=== PATIENT | male | born 1960 | race Two or more races ===

== ENCOUNTER 2019-10-04 13:50 | Emergency (ER) | payer OTHER ==
[~2019-10-04] VITALS: Ht 185.4 cm; Wt 84.1 kg
[~2019-10-04 13:50] MED LIST: AMLO5TAB9 PO
[2019-10-04 18:53] VITALS: BP 154/81
== END 2019-10-04 19:10 | disposition home or self-care (01) ==
LOC: EMS 13:51
DX: S02.5XXA Fracture of tooth (traumatic), initial encounter for closed fracture (principal); K02.9 Dental caries, unspecified; I10 Essential (primary) hypertension; X58.XXXA Exposure to other specified factors, initial encounter; Y93.89 Activity, other specified; Y92.89 Other specified places as the place of occurrence of the external cause; Y99.8 Other external cause status

== ENCOUNTER 2021-08-04 11:59 | Emergency (ER) | payer MEDICAID, OTHER ==
[~2021-08-04] VITALS: Ht 182.9 cm; Wt 84.1 kg
[~2021-08-04 11:59] MED LIST changes: +AMLO-257 PO; -AMLO5TAB9 PO
[2021-08-04 12:04] VITALS: BP 136/72
== END 2021-08-04 13:30 | disposition left against medical advice (07) ==
LOC: EMS 12:02
DX: R07.89 Other chest pain (principal); R06.02 Shortness of breath; I10 Essential (primary) hypertension; Z79.899 Other long term (current) drug therapy
CPT/HCPCS: 71046; 93005; 99291; 36415-L1; 36415-TC